=== PATIENT | male | born 1970 | race Two or more races ===

== ENCOUNTER 2019-07-26 09:48 | Outpatient (CLI) | payer OTHER ==
[~2019-07-26 09:48] MED LIST: KETO10TA2 PO
== END 2019-07-26 13:02 | disposition home or self-care (01) ==
LOC: NUCLEAR 09:48
DX: C25.0 Malignant neoplasm of head of pancreas (principal); C78.7 Secondary malignant neoplasm of liver and intrahepatic bile duct
CPT/HCPCS: 78815; A9552

== ENCOUNTER 2019-10-30 08:42 | Outpatient (CLI) | payer OTHER | END 2019-10-30 09:43 | disposition home or self-care (01) | LOC: TOM 08:42 | DX: C25.0 Malignant neoplasm of head of pancreas (principal); C78.7 Secondary malignant neoplasm of liver and intrahepatic bile duct ==